=== PATIENT | female | born 1955 | race Asian ===

== ENCOUNTER 2017-09-28 10:36 | Emergency (ER) | payer BC | END 2017-09-28 14:21 | disposition home or self-care (01) | LOC: FTE 10:36 | DX: J30.9 Allergic rhinitis, unspecified (principal) | CPT/HCPCS: 71045; 99283-25 ==

== ENCOUNTER 2017-10-30 10:46 | Emergency (ER) | payer BC ==
[2017-10-30] MEDS: LIDOCAINE/MYLANTA 40 ML BTL PO (15:14)
[2017-10-30] MEDS: FAMOTIDINE 20 MG TAB PO (15:14)
== END 2017-10-30 15:43 | disposition home or self-care (01) ==
LOC: FTE 10:46
DX: K21.9 Gastro-esophageal reflux disease without esophagitis (principal)
CPT/HCPCS: 99283; Z7502

== ENCOUNTER 2018-04-06 13:40 | Emergency (ER) | payer BC ==
[2018-04-06 14:34] LABS: ADD UMIC NO; UR ASCORBIC ACID 40 mg/dL (NEGATIVE); UR BILIRUBIN (Dip) NEGATIVE (NEGATIVE); UR BLOOD (Dip) NEGATIVE (NEGATIVE); UR CLARITY CLEAR (CLEAR); UR COLOR YELLOW (YELLOW); UR GLUCOSE (Dip) NEGATIVE (NEGATIVE); UR KETONES (Dip) NEGATIVE (NEGATIVE); UR LEUKOCYTE ESTERASE (Dip) NEGATIVE Leu/ul (NEGATIVE); UR NITRITE (Dip) NEGATIVE (NEGATIVE); UR SPECIFIC GRAVITY (Dip) 1.021 (1.003-1.030); UR TOTAL PROTEIN (Dip) NEGATIVE (NEGATIVE); UR UROBILINOGEN (Dip) NEGATIVE (NEGATIVE)
== END 2018-04-06 15:07 | disposition home or self-care (01) ==
LOC: FTE 13:40
DX: K59.00 Constipation, unspecified (principal)
CPT/HCPCS: 74018; 81003; 99284-25

== ENCOUNTER 2018-08-21 13:56 | Emergency (ER) | payer BC | END 2018-08-21 18:35 | disposition home or self-care (01) | LOC: FTE 13:56 | DX: S99.921A Unspecified injury of right foot, initial encounter (principal); X58.XXXA Exposure to other specified factors, initial encounter; Y92.9 Unspecified place or not applicable | CPT/HCPCS: 73630; 99283-25 ==

== ENCOUNTER 2018-09-01 11:17 | Emergency (ER) | payer BC | END 2018-09-01 14:26 | disposition home or self-care (01) | LOC: FTE 11:17 | DX: S99.921A Unspecified injury of right foot, initial encounter (principal); X58.XXXA Exposure to other specified factors, initial encounter; Y92.9 Unspecified place or not applicable | CPT/HCPCS: 73650; 99283-25 ==